=== PATIENT | male | born 1970 | race African-American/Black ===

== ENCOUNTER 2018-06-08 15:31 | Emergency (ER) | payer BC, OTHER ==
--- OUTSIDE RECORDS SUMMARY | 2018-06-08 15:33 | XMS REPORT | Clinical Summary ---
:1970 Author Organization [facility] Address [address] [place] [address] Care Team Providers Name Role Phone Denise Ortiz VEGETABLE VENDOR-C Primary Care Provider Allergies No Known Allergies Current Medications Prescription Sig. Disp. Refills Start Date End Date Status hydroCHLOROthiazide (HYDRODIURIL) 25 MG 11/14/2017 Active tablet metoprolol succinate XL (TOPROL-XL) 100 01/01/2018 Active mg 24 hr tablet COZAAR 50 mg tablet 12/30/2017 Active metoprolol succinate XL (TOPROL-XL) 100 11/17/2017 Active mg 24 hr tablet VIMOVO 500-20 mg tablet,IR & delay 3 12/20/2017 Active rel,biphasic Active Problems No known active problems Encounters Date Type Specialty Care Team Description 01/06/2018 Office Visit Orthopedic Surgery Ismael Ramos II, Posterior tibialis tendon insufficiency (Primary Dx); Tibialis posterior tendinitis, left; Class 3 obesity with body mass index (BMI) of 50.0 to 59.9 in adult, unspecified obesity type, unspecified whether serious comorbidity present after 06/07/2017 Social History Tobacco Use Types Packs/Day Years Used Date Never Smoker Smokeless Tobacco: Never Used Tobacco Cessation: Counseling Given: No Alcohol Use Drinks/Week oz/Week Comments No Sex Assigned at Date Recorded Not on file Last Filed Vital Signs Vital Sign Reading Time Taken Blood Pressure - - Pulse - - Temperature - - Respiratory Rate - - Oxygen Saturation - - Inhaled Oxygen Concentration - - Weight 184 kg (405 lb) 01/06/2018 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
--- NOTE | 2018-06-08 16:07 | ER ---
Nurse's Notes [facility] Name: Uche Cameron Jr Age: 47 yrs Sex: Male : 1970 Arrival Date: 06/08/2018 Time: 15:35 Bed 20 Private MD: None, None Diagnosis: Contact Dermatitis Presentation: 06/08 15:46 Presenting complaint: Patient states: "I think I got into some poison reddy" Patient aj1 reports rash to left arm, left zacarias and right arm. Rash is raised, itchy. Transition of care: patient was not received from another setting of care. Onset of symptoms was June 07, 2018. Risk Assessment: Do you want to hurt yourself or someone else? Patient reports no desire to harm self or others. Initial Sepsis Screen: Does the patient meet any 2 criteria? No. Patient's initial sepsis screen is negative. Does the patient have a suspected source of infection? No. Patient's initial sepsis screen is negative. Care prior to arrival: None. 15:46 Method Of Arrival: Ambulatory aj1 15:46 Acuity: JOSUÉ 4 aj1 Triage Assessment: 15:50 General: Appears in no apparent distress. comfortable, Behavior is calm, cooperative, aj1 appropriate for age. Pain: Denies pain. Neuro: Level of Consciousness is awake, alert, obeys commands. Cardiovascular: Patient's skin is warm and dry. Respiratory: Airway is patent Respiratory effort is even, unlabored, Respiratory pattern is regular, symmetrical. Derm: Rash noted that is itchy, raised, vesicular, on right arm, left arm and left zacarias. Historical: - Allergies: 15:50 No Known Allergies; aj1 - Home Meds: 15:50 Metoprolol Tartrate Oral [Active]; losartan oral oral [Active]; Hydrochlorothiazide aj1 Oral [Active]; - PMHx: 15:50 Hypertension; aj1 - PSHx: 15:50 Knee surgery; aj1 - Immunization history:: Flu vaccine is not up to date. - Social history:: Smoking status: Patient/guardian denies using tobacco. - Ebola Screening: : Patient denies travel to an Ebola-affected area in the 21 days before illness onset. Screenin:08 Abuse screen: Denies threats or abuse. Nutritional screening: No deficits noted. em Tuberculosis screening: No symptoms or risk factors identified. Fall Risk None identified. Assessment: 16:08 General: Appears in no apparent distress. comfortable, Behavior is calm, cooperative. em Pain: Denies pain. Neuro: Level of Consciousness is awake, alert, obeys commands, Oriented to person, place, time, situation. Cardiovascular: Capillary refill < 3 seconds Patient's skin is warm and dry. Respiratory: Airway is patent Respiratory effort is even, unlabored, Respiratory pattern is regular, symmetrical. Derm: Skin is intact, Rash noted that is itchy, papular, on left leg and left arm and right arm and left zacarias. Musculoskeletal: Range of motion: intact in all extremities. 16:15 Reassessment: Patient appears in no apparent distress at this time. I agree with above iw assessment by Lanre Panchal LVN. Vital Signs: 15:50 BP 151 / 82; Pulse 56; Resp 18; Temp 97.9; Pulse Ox 96% on R/A; Weight 181.44 kg (R); aj1 Height 5 ft. 11 in. (180.34 cm) (R); Pain 0/10; 15:50 Body Mass Index 55.79 (181.44 kg, 180.34 cm) [facility] ED Course: 15:35 Patient arrived in ED. mr 15:36 None, None is Private Physician. mr 15:[address] [facility] 15:50 Arm band placed on Patient placed in an exam room. [facility] 15:53 Taj Sears PA is PHCP. [facility] 15:53 Xavier Michaels MD is Attending Physician. [facility] 15:56 Lanre Panchal LVN is Primary Nurse. em 16:08 Patient has correct armband on for positive identification. Bed in low position. Call em light in reach. 16:08 No provider procedures requiring assistance completed. Patient did not have IV access em during this emergency room visit. Administered Medications: No medications were administered Outcome: 16:06 Discharge ordered by . [facility] 16:18 Discharged to home ambulatory. em 16:18 Discharge instructions given to patient, Instructed on discharge instructions, follow up and referral plans. medication usage, Demonstrated understanding of instructions, follow-up care, Prescriptions given X 2. 16:18 Condition: good em 16:19 Patient left the ED. em Signatures: Maria Eugenia Bazzi RN RN aj Taj Sears PA PA jmm Rivera, Maria mr Jacksonoz, Lanre, WIRE MACHINE CUTTER WIRE MACHINE CUTTER em Virgie Goodson RN RN iw Corrections: (The following items were deleted from the chart) 16:19 16:18 Discharge instructions given to patient, Instructed on discharge instructions, em follow up and referral plans. medication usage, Demonstrated understanding of instructions, follow-up care, Prescriptions given X 2, em 16:19 16:18 Discharged to home ambulatory, em em
--- NOTE | 2018-06-08 16:07 | EDPHYS ---
Physician Documentation [facility] Name: Uche Cameron Jr Age: 47 yrs Sex: Male : 1970 Arrival Date: 06/08/2018 Time: 15:35 Bed 20 Private MD: None, None ED Physician Xavier Michaels HPI: 06/08 16:06 This 47 yrs old Black Male presents to ER via Ambulatory with complaints of Rash. [facility] 16:06 The patient's rash thought to be caused by Dermatitis. The rash is located on the left jmm arm and left leg. Onset: The symptoms/episode began/occurred gradually, 2 day(s) ago. Associated signs and symptoms: Pertinent negatives: fever, SOB. This is a 47 year old male with a history of HTN that presents to the ED with a rash to the left arm and left leg. Patient denies fever or pain. Admits to itchiness. Denies shortness of breath. . Historical: - Allergies: 15:50 No Known Allergies; aj1 - Home Meds: 15:50 Metoprolol Tartrate Oral [Active]; losartan oral oral [Active]; Hydrochlorothiazide aj1 Oral [Active]; - PMHx: 15:50 Hypertension; aj1 - PSHx: 15:50 Knee surgery; aj1 - Immunization history:: Flu vaccine is not up to date. - Social history:: Smoking status: Patient/guardian denies using tobacco. - Ebola Screening: : Patient denies travel to an Ebola-affected area in the 21 days before illness onset. ROS: 16:06 Constitutional: Negative for fever, chills, and weight loss, Cardiovascular: Negative jm for chest pain, palpitations, and edema, Respiratory: Negative for shortness of breath, cough, wheezing, and pleuritic chest pain, Abdomen/GI: Negative for abdominal pain, nausea, vomiting, diarrhea, and constipation. 16:06 Skin: Positive for rash. 16:06 All other systems are negative. Exam: 16:06 Head/Face: atraumatic. Chest/axilla: Normal chest wall appearance and motion. jmm Cardiovascular: Regular rate and rhythm. No edema appreciated Respiratory: Normal respirations, no respiratory distress appreciated Back: Normal ROM 16:06 Constitutional: The patient appears in no acute distress, alert, awake. 16:06 Skin: erythematous rash noted to the left arm and left leg, non tender to palpation, no induration appreciated. 16:06 Neuro: Orientation: is normal, appropriate for stated age, Mentation: is normal, Memory: is normal, Gait: is steady. Vital Signs: 15:50 BP 151 / 82; Pulse 56; Resp 18; Temp 97.9; Pulse Ox 96% on R/A; Weight 181.44 kg (R); aj1 Height 5 ft. 11 in. (180.34 cm) (R); Pain 0/10; 15:50 Body Mass Index 55.79 (181.44 kg, 180.34 cm) aj1 MDM: 16:06 Patient medically screened. [facility] 16:06 Data reviewed: vital signs, nurses notes. Counseling: I had a detailed discussion with brock the patient and/or guardian regarding: the historical points, exam findings, and any diagnostic results supporting the discharge/admit diagnosis, the need for outpatient follow up, to return to the emergency department if symptoms worsen or persist or if there are any questions or concerns that arise at home. 16:06 Differential diagnosis: dermatitis, herpes zoster. ED course: Patient states symptoms [facility] occurred after pulling weeds. History and description of discomfort appears most likely consistent with contact dermatitis. . Administered Medications: No medications were administered Disposition: 06/09 10:32 Co-signature as Attending Physician, Xavier Michaels MD. Disposition: 06/08/18 16:06 Discharged to Home. Impression: Contact Dermatitis. - Condition is Stable. - Discharge Instructions: Contact Dermatitis. - Prescriptions for Hydroxyzine HCl 25 mg Oral Tablet - take 1 tablet by ORAL route every 6 hours As needed; 30 tablet. Prednisone 20 mg Oral Tablet - take 3 tablets by ORAL route once daily . Please take 3 tabs by mouth daily for 3 days, then 2 tabs by mouth daily for 3 days, then 1 tab by mouth daily for 3 days, then 1/2 tab by mouth daily for 3 days; 20 tablet. - Work release form, Medication Reconciliation Form, Thank You Letter, Antibiotic Education, Prescription Opioid Use form. - Follow up: Private Physician; When: 2 - 3 days; Reason: Continuance of care. Signatures: Maria Eugenia Bazzi RN RN aj1 Taj Sears PA PA [facility] Lanre Panchal LVN COMMUNITY RECREATION PROGRAMMER Xavier Cox MD MD gs Corrections: (The following items were deleted from the chart) 06/08 16:19 16:06 06/08/2018 16:06 Discharged to Home. Impression: Contact Dermatitis. Condition is em Stable. Forms are Medication Reconciliation Form, Thank You Letter, Antibiotic Education, Prescription Opioid Use. Follow up: Private Physician; When: 2 - 3 days; Reason: Continuance of care. brock
== END 2018-06-08 16:19 | disposition home or self-care (01) ==
LOC: ER 15:31
DX: L25.9 Unspecified contact dermatitis, unspecified cause (principal)
CPT/HCPCS: 99282

== ENCOUNTER 2019-03-22 17:03 | Emergency (ER) | payer BC ==
--- OUTSIDE RECORDS SUMMARY | 2019-03-22 17:05 | XMS REPORT | Clinical Summary ---
:1970 Author Organization [facility] Address [address] [place] [id number] Care Team Providers Name Role Phone Denise Ortiz PUBLICATIONS DESIGNER-C Primary Care Provider Allergies No Known Allergies Medications Medication Sig Dispensed Refills Start Date End Date Status hydroCHLOROthiazide (HYDRODIURIL) 25 0 11/14/2017 Active MG tablet metoprolol succinate XL (TOPROL-XL) 0 01/01/2018 Active 100 mg 24 hr tablet COZAAR 50 mg tablet 0 12/30/2017 Active metoprolol succinate XL (TOPROL-XL) 0 11/17/2017 Active 100 mg 24 hr tablet VIMOVO 500-20 mg tablet,IR & delay 3 12/20/2017 Active rel,biphasic Active Problems No known active problems Social History Tobacco Use Types Packs/Day Years Used Date Never Smoker Smokeless Tobacco: Never Used Tobacco Cessation: Counseling Given: No Alcohol Use Drinks/Week oz/Week Comments No Sex Assigned at Date Recorded Not on file Job Start Date Occupation Industry Not on file Not on file Not on file Travel History Travel Start Travel End No recent travel history available. Last Filed Vital Signs Not on file Plan of Treatment Health Maintenance Due Date Last Done Comments INFLUENZA VACCINE 07/02/2019 Results Not on fileafter 03/21/2018 Insurance Payer Benefit Plan / Group Subscriber ID Type Phone Address [employer] xxxxxxxxxxxx HMO Advance Directives Patient has advance care planning documents on file. For more information, please contact:Inocencio [id number] [place] [address]
[2019-03-22] MEDS ORDERED: TETRACAINE HCL 0.5% 4ML OPTH ONE (17:40)
[2019-03-22] MEDS ORDERED: FLUORESCEIN SODIUM 1 MG/WRAP ONE (17:40)
--- NOTE | 2019-03-22 17:54 | ER ---
Nurse's Notes [facility] Name: Uche Cameron Jr Age: 48 yrs Sex: Male : 1970 Arrival Date: 03/22/2019 Time: 17:05 Bed 27 Private MD: Diagnosis: Left Corneal Ulcer Presentation: 03/22 17:12 Presenting complaint: Patient states: left eye soreness and feels like something may be sv in there but states he wore his contacts last night to bed. Transition of care: patient was not received from another setting of care. Onset of symptoms was March 22, 2019. Care prior to arrival: None. 17:12 Method Of Arrival: Ambulatory sv 17:12 Acuity: JOSUÉ 3 sv 18:03 Risk Assessment: Do you want to hurt yourself or someone else? Patient reports no rv desire to harm self or others. Initial Sepsis Screen: Does the patient meet any 2 criteria? No. Patient's initial sepsis screen is negative. Does the patient have a suspected source of infection? No. Patient's initial sepsis screen is negative. Historical: - Allergies: 17:14 No Known Allergies; sv - PMHx: 17:14 Hypertension; sv - PSHx: 17:14 Knee surgery; sv - Immunization history:: Adult Immunizations up to date. - Social history:: Smoking status: unknown. - Ebola Screening: : Patient negative for fever greater than or equal to 101.5 degrees Fahrenheit, and additional compatible Ebola Virus Disease symptoms Patient denies exposure to infectious person Patient denies travel to an Ebola-affected area in the 21 days before illness onset. Screenin:30 Abuse screen: Denies threats or abuse. Denies injuries from another. Nutritional rv screening: No deficits noted. Tuberculosis screening: No symptoms or risk factors identified. Fall Risk None identified. Assessment: 17:29 General: Appears in no apparent distress. comfortable, Behavior is calm, cooperative. rv Pain: Complains of pain in left eye. Neuro: Level of Consciousness is awake, alert, obeys commands, Oriented to person, place, time, situation. Cardiovascular: Capillary refill < 3 seconds. Respiratory: Airway is patent. GI: No signs and/or symptoms were reported involving the gastrointestinal system. : No signs and/or symptoms were reported regarding the genitourinary system. EENT: Reports blurred vision in LEFT EYE pain in left eye. Derm: Skin is intact. Musculoskeletal: No signs and/or symptoms reported regarding the musculoskeletal system. Vital Signs: 17:14 BP 154 / 88; Pulse 86; Resp 18; Temp 97.9; Pulse Ox 97% ; Weight 172.37 kg; Height 5 sv ft. 11 in. (180.34 cm); Pain 5/10; 18:01 BP 146 / 84 LA Sitting; Pulse 81; Resp 18 S; Pulse Ox 99% on R/A; rv 17:14 Body Mass Index 53.00 (172.37 kg, 180.34 cm) sv Visual Acuity: 17:25 Left Eye Visual acuity 20/20, Pupil size 2 mm, Normal, Reactive To Accomodation; Right rv Eye Visual acuity 20/20, Pupil size 2 mm, Normal, Reactive To Accomodation; Both Eyes Visual acuity 20/20; With Lenses; ED Course: 17:05 Patient arrived in ED. mr 17:14 Triage completed. sv 17:15 Arm band placed on. sv 17:20 Taj Sears PA is PHCP. [facility] 17:20 Branden Mensah MD is Attending Physician. [facility] 17:20 Andrew Scott RN is Primary Nurse. rv 17:20 Patient has correct armband on for positive identification. Bed in low position. Call rv light in reach. Side rails up X 1. Pulse ox on. NIBP on. 17:55 Jermaine Fernandez MD is Referral Physician. [facility] 17:55 Lexa Fernandez MD is Referral Physician. [facility] 17:55 Gypsy Zamora MD is Referral Physician. [facility] 18:02 Assist provider with eye exam of left eye. using fluorescein stain, Performed by Taj CHUA Patient tolerated well. 18:03 Patient did not have IV access during this emergency room visit. rv Administered Medications: No medications were administered Outcome: 17:53 Discharge ordered by . [facility] 18:03 Discharged to home ambulatory. rv 18:03 Condition: good 18:03 Discharge instructions given to patient, family, Instructed on discharge instructions, follow up and referral plans. medication usage, Demonstrated understanding of instructions, follow-up care, medications, Prescriptions given X 1. 18:05 Patient left the ED. rv Signatures: Roxie Parker RN RN sv Taj Sears PA PA jmm Rivera, Mary mr Vicente, Ronaldo, RN RN rv Corrections: (The following items were deleted from the chart) 17:16 17:12 Acuity: JOSUÉ 4 sv sv 17:16 17:14 Pulse 86bpm; Resp 18bpm; Pulse Ox 97%; Temp 97.9F; 172.37 kg; Height 5 ft. 11 sv in.; BMI: 53.0; Pain 5/10; sv
--- NOTE | 2019-03-22 17:54 | EDPHYS ---
Physician Documentation [facility] Name: Uche Cameron Jr Age: 48 yrs Sex: Male : 1970 Arrival Date: 03/22/2019 Time: 17:05 Bed 27 Private MD: ED Physician Branden Mensah HPI: 03/22 17:20 This 48 yrs old Black Male presents to ER via Ambulatory with complaints of Eye Problem.jmm 17:20 The patient is experiencing pain. Onset: The symptoms/episode began/occurred last jm night. Duration: the symptoms are continuous. This is a 48 year old male with a history of htn that presents to the ED with complaints of pain to his left eye. Patient states he was easter egg hunting with confetti eggs yesterday. Patient developed soreness to his left eye and took his contact lens out. Patient denies change in vision. . Historical: - Allergies: 17:14 No Known Allergies; sv - PMHx: 17:14 Hypertension; sv - PSHx: 17:14 Knee surgery; sv - Immunization history:: Adult Immunizations up to date. - Social history:: Smoking status: unknown. - Ebola Screening: : Patient negative for fever greater than or equal to 101.5 degrees Fahrenheit, and additional compatible Ebola Virus Disease symptoms Patient denies exposure to infectious person Patient denies travel to an Ebola-affected area in the 21 days before illness onset. ROS: 17:20 Constitutional: Negative for fever, chills, and weight loss. jmm 17:20 Eyes: Positive for pain, Negative for vision loss, visual disturbance. 17:20 All other systems are negative. Exam: 17:20 Visual Acuity: I have reviewed the nursing documentation. jm 17:20 Constitutional: This is a well developed, well nourished patient who is awake, alert, and in no acute distress. Head/Face: atraumatic. 17:20 Neck: Trachea midline, Supple Chest/axilla: Normal chest wall appearance and motion. Cardiovascular: Regular rate and rhythm. No edema appreciated Respiratory: Normal respirations, no respiratory distress appreciated Abdomen/GI: Non distended, soft Back: Normal ROM Skin: General appearance color normal MS/ Extremity: Moves all extremities, no obvious deformities appreciated, no edema noted to the lower extremities Neuro: Awake and alert, normal gait Psych: Behavior is normal, Mood is normal, Patient is cooperative and pleasant 17:20 Eyes: Extraocular movements: intact throughout, Conjunctiva: normal, Corneas: abrasion, that is small, at 12 o'clock, a fluorescein strip employed to appreciate the findings, Anterior chamber: normal. Vital Signs: 17:14 BP 154 / 88; Pulse 86; Resp 18; Temp 97.9; Pulse Ox 97% ; Weight 172.37 kg; Height 5 sv ft. 11 in. (180.34 cm); Pain 5/10; 18:01 BP 146 / 84 LA Sitting; Pulse 81; Resp 18 S; Pulse Ox 99% on R/A; rv 17:14 Body Mass Index 53.00 (172.37 kg, 180.34 cm) sv Visual Acuity: 17:25 Left Eye Visual acuity 20/20, Pupil size 2 mm, Normal, Reactive To Accomodation; Right rv Eye Visual acuity 20/20, Pupil size 2 mm, Normal, Reactive To Accomodation; Both Eyes Visual acuity 20/20; With Lenses; MDM: 17:20 Patient medically screened. [facility] 17:50 Data reviewed: vital signs, nurses notes. Counseling: I had a detailed discussion with brock the patient and/or guardian regarding: the historical points, exam findings, and any diagnostic results supporting the discharge/admit diagnosis, the need for outpatient follow up, to return to the emergency department if symptoms worsen or persist or if there are any questions or concerns that arise at home. ED course: [facility] normal. Due to concerns for corneal ulcer patient advised to follow up with opthalmology tomorrow and given strict return precautions for changes in vision or increased pain. Patient and family understood and agrees with the plan of care. . Administered Medications: No medications were administered Disposition: 03/23 07:58 Co-signature as Attending Physician, Branden Mensah MD I agree with the assessment and [place] plan of care. Disposition: 03/22/19 17:53 Discharged to Home. Impression: Left Corneal Ulcer. - Condition is Stable. - Discharge Instructions: Corneal Ulcer. - Prescriptions for Ocuflox 0.3 % Ophthalmic Drops - instill 2 drop by OPHTHALMIC route every 6 hours for 2 days; 15 milliliter. - Medication Reconciliation Form, Thank You Letter, Antibiotic Education, Prescription Opioid Use, Work release form form. - Follow up: Private Physician; When: 2 - 3 days; Reason: Recheck today's complaints, Continuance of care, Re-evaluation by your physician. Follow up: Jermaine Fernandez MD; When: 2 - 3 days; Reason: Recheck today's complaints, Continuance of care, Re-evaluation by your physician. Follow up: Lexa Fernandez MD; When: Tomorrow; Reason: Recheck today's complaints, Continuance of care, Re-evaluation by your physician. Follow up: Gypsy Zamora MD; When: Tomorrow; Reason: Recheck today's complaints, Continuance of care, Re-evaluation by your physician. - Notes: Please do not use contacts untill cleared by opthalmology. please return to the ED if you develop increased pain, visual changes, or any other concerning symptoms. Signatures: Roxie Parker, LUCIE RN Branden Scott MD MD cha Mickail, Joel, PA PA [facility] Andrew Scott RN RN rv Corrections: (The following items were deleted from the chart) 03/22 17:55 17:53 03/22/2019 17:53 Discharged to Home. Impression: Left Corneal Ulcer. Condition is jmm Stable. Forms are Medication Reconciliation Form, Thank You Letter, Antibiotic Education, Prescription Opioid Use. Follow up: Private Physician; When: 2 - 3 days; Reason: Recheck today's complaints, Continuance of care, Re-evaluation by your physician. [facility] 18:05 17:55 03/22/2019 17:53 Discharged to Home. Impression: Left Corneal Ulcer. Condition is rv Stable. Discharge Instructions: Corneal Ulcer. Prescriptions for Ocuflox 0.3 % Ophthalmic Drops - instill 2 drop by OPHTHALMIC route every 6 hours for 2 days; 15 milliliter. and Forms are Medication Reconciliation Form, Thank You Letter, Antibiotic Education, Prescription Opioid Use. Follow up: Private Physician; When: 2 - 3 days; Reason: Recheck today's complaints, Continuance of care, Re-evaluation by your physician. Follow up: Jermaine Fernandez; When: 2 - 3 days; Reason: Recheck today's complaints, Continuance of care, Re-evaluation by your physician. Follow up: Lexa Fernandez; When: Tomorrow; Reason: Recheck today's complaints, Continuance of care, Re-evaluation by your physician. Follow up: Gypsy Zamora; When: Tomorrow; Reason: Recheck today's complaints, Continuance of care, Re-evaluation by your physician. brock
== END 2019-03-22 18:05 | disposition home or self-care (01) ==
LOC: ER 17:03
DX: H16.002 Unspecified corneal ulcer, left eye (principal); I10 Essential (primary) hypertension
CPT/HCPCS: 99283

== ENCOUNTER 2020-07-09 10:54 | Emergency (ER) | payer BC ==
--- OUTSIDE RECORDS SUMMARY | 2020-07-09 10:56 | XMS REPORT | Clinical Summary ---
:1970 Author Organization [facility] Address [address] [place] [id number] Care Team Providers Name Role Phone Denise Ortiz PERSONNEL PSYCHOLOGIST-C Primary Care Provider [phone] Allergies No Known Allergies Medications Medication Sig Dispensed Refills Start Date End Date Status hydroCHLOROthiazide (HYDRODIURIL) 25 0 Active MG tablet metoprolol succinate XL (TOPROL-XL) 0 12/04 Active 100 mg 24 hr tablet COZAAR 50 mg tablet 0 12/30/2017 Active metoprolol succinate XL (TOPROL-XL) 0 11/01 Active 100 mg 24 hr tablet VIMOVO 500-20 mg tablet,IR & delay 3 12/20 Active rel,biphasic Active Problems No known active [...] Due Date Last Done Comments INFLUENZA VACCINE 07/02/2020 Results Not on fileafter 07/09/2019 Advance Directives For more information, please contact: [phone] Type Date Recorded 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
--- NOTE | 2020-07-09 12:09 | ER ---
Nurse's Notes [facility] Name: Uche Cameron Jr Age: 49 yrs Sex: Male : 1970 Arrival Date: 07/09/2020 Time: 10:55 Bed 8 Private MD: Diagnosis: Edema, unspecified;Pain in left lower leg Presentation: 07/09 11:11 Chief complaint: Patient states: stepped through his attic last Saturday, iw laceration/abrasion down left zacarias, was seen by his PCP and started on bactrim and chlorhexidine to clean with , is still having increasing pain to leg, is worried there may be a fracture. Coronavirus screen: Client denies travel out of the [place] in the last 14 days. Ebola Screen: Patient negative for fever greater than or equal to 101.5 degrees Fahrenheit, and additional compatible Ebola Virus Disease symptoms Patient denies exposure to infectious person. Patient denies travel to an Ebola-affected area in the 21 days before illness onset. No symptoms or risks identified at this time. Initial Sepsis Screen: Does the patient meet any 2 criteria? No. Patient's initial sepsis screen is negative. Does the patient have a suspected source of infection? No. Patient's initial sepsis screen is negative. Risk Assessment: Do you want to hurt yourself or someone else? Patient reports no desire to harm self or others. Onset of symptoms was July 02, 2020. 11:11 Method Of Arrival: Ambulatory iw 11:11 Acuity: JOSUÉ 4 iw Historical: - Allergies: 11:14 No Known Allergies; iw - Home Meds: 11:14 Hydrochlorothiazide Oral [Active]; losartan Oral [Active]; Metoprolol Tartrate Oral iw [Active]; - PMHx: 11:14 Hypertension; iw - PSHx: 11:14 Knee surgery; iw - Social history:: Smoking status: . - Family history:: not pertinent. - Hospitalizations: : No recent hospitalization is reported. Screenin:24 Abuse screen: Denies threats or abuse. Denies injuries from another. Nutritional iw screening: No deficits noted. Tuberculosis screening: No symptoms or risk factors identified. Fall Risk None identified. Assessment: 11:23 General: Appears in no apparent distress. Behavior is calm, cooperative. Pain: iw Complains of pain in left zacarias. Neuro: Level of Consciousness is awake, alert, obeys commands, Oriented to person, place, time, situation, Moves all extremities. Full function. Cardiovascular: Patient's skin is warm and dry. Respiratory: Respiratory effort is even, unlabored. Derm: Musculoskeletal: Range of motion: intact in all extremities. Musculoskeletal: Swelling present in left zacarias. Injury Description: Abrasion sustained to left zacarias is scabbed. Vital Signs: 11:11 BP 177 / 110; Pulse 61; Resp 16; Pulse Ox 98% on R/A; iw ED Course: 10:55 Patient arrived in ED. ag5 11:09 Stefan Nolen MD is Attending Physician. rn 11:11 Virgie Goodson RN is Primary Nurse. iw 11:13 Triage completed. iw 11:23 Arm band placed on. iw Administered Medications: 11:30 Drug: Tetanus-Diphtheria Toxoid Adult 0.5 ml {Rat Trapper: Responsible [place]. Exp: bp 01/15/2022. Lot #: [id number]. } Route: IM; Site: right deltoid; 11:35 Follow up: Response: No adverse reaction iw Outcome: 12:09 Discharge ordered by . rn 12:27 Patient left the ED. iw Signatures: Virgie Goodson RN RN Stefan Nolen MD MD rn Peltier, Brian, RN RN bp Gaskin, Ajare ag5
--- NOTE | 2020-07-09 12:09 | EDPHYS ---
Physician Documentation [facility] Name: Uche Cameron Jr Age: 49 yrs Sex: Male : 1970 Arrival Date: 07/09/2020 Time: 10:55 Bed 8 Private MD: ED Physician Stefan Nolen HPI: 07/09 11:19 This 49 yrs old Black Male presents to ER via Ambulatory with complaints of Wound Check.rn 11:19 The patient presents with an injury, pain, swelling. The complaints affect the left rn zacarias. Onset: The symptoms/episode began/occurred 1 week(s) ago. Modifying factors: The symptoms are alleviated by nothing. the symptoms are aggravated by nothing. Severity of symptoms: At their worst the symptoms were mild, in the emergency department the symptoms are unchanged. The patient has not experienced similar symptoms in the past. The patient has been recently seen by a physician:. Reports fell through ceiling, 1 week ago, cut leg on drywall, seen by PCP, no stitches, reports given abx, leg still swollen and hurting, wants to make sure didn't break anything. Is ambulatory. Reports elevating leg and wrapping it did improve symptoms temporarily. . Historical: - Allergies: 11:14 No Known Allergies; iw - Home Meds: 11:14 Hydrochlorothiazide Oral [Active]; losartan Oral [Active]; Metoprolol Tartrate Oral iw [Active]; - PMHx: 11:14 Hypertension; iw - PSHx: 11:14 Knee surgery; iw - Social history:: Smoking status: . - Family history:: not pertinent. - Hospitalizations: : No recent hospitalization is reported. ROS: 11:19 Constitutional: Negative for fever, chills, and weight loss, Cardiovascular: Negative rn for chest pain, palpitations, and edema, Respiratory: Negative for shortness of breath, cough, wheezing, and pleuritic chest pain, MS/Extremity: + LLE injury and swelling/pain Skin: + abrasion/laceration to left leg Neuro: Negative for weakness, numbness, tingling Exam: 11:19 Constitutional: This is a well developed, well nourished patient who is awake, alert, rn and in no acute distress. Ambulatory to room without difficulty. MS/ Extremity: Pulses equal, no cyanosis. Neurovascular intact. Full, normal range of motion. LLE with increased circumference compared to right near ankle/distal to wound but equal proximally. No streaking or tenderness along venous/lymphatic system. wound C/D/I, no fluctuance or foreign body. Vital Signs: 11:11 BP 177 / 110; Pulse 61; Resp 16; Pulse Ox 98% on R/A; iw MDM: 11:09 Patient medically screened. rn 12:07 Differential diagnosis: closed fracture, contusion, dependent edema. Differential rn diagnosis: early cellulitis. Data reviewed: vital signs, nurses notes. Counseling: I had a detailed discussion with the patient and/or guardian regarding: the historical points, exam findings, and any diagnostic results supporting the discharge/admit diagnosis, radiology results, the need for outpatient follow up, to return to the emergency department if symptoms worsen or persist or if there are any questions or concerns that arise at home. Special discussion: I discussed with the patient/guardian in detail that at this point there is no indication for admission to the hospital. It is understood, however, that if the symptoms persist or worsen the patient needs to return immediately for re-evaluation. ED course: No fracture on xray, pt already on abx day 2, recommend elevation of extremity and continue with compression. Return precautions given and understood. . 07/09 11:18 Order name: XRAY Tib Fib LEFT rn 07/09 12:24 Order name: RAD EDMS Administered Medications: 11:30 Drug: Tetanus-Diphtheria Toxoid Adult 0.5 ml {Clean Up Supervisor: [place]. Exp: bp 01/15/2022. Lot #: [id number]. } Route: IM; Site: right deltoid; 11:35 Follow up: Response: No adverse reaction Disposition: 07/09/20 12:09 Discharged to Home. Impression: Edema, unspecified, Pain in left lower leg. - Condition is Stable. - Discharge Instructions: Abrasion, Contusion, Peripheral Edema. - Medication Reconciliation Form, Thank You Letter, Antibiotic Education, Prescription Opioid Use form. - Follow up: Private Physician; When: As needed; Reason: Recheck today's complaints, Re-evaluation by your physician. - Problem is new. - Symptoms are unchanged. Signatures: Dispatcher [employer] Virgie Contreras RN RN Nolen, Stefan, MD MD rn Guerita, Marbin, RN RN bp Corrections: (The following items were deleted from the chart) 12:27 12:09 07/09/2020 12:09 Discharged to Home. Impression: Edema, unspecified; Pain in left iw lower leg. Condition is Stable. Forms are Medication Reconciliation Form, Thank You Letter, Antibiotic Education, Prescription Opioid Use. Follow up: Private Physician; When: As needed; Reason: Recheck today's complaints, Re-evaluation by your physician. Problem is new. Symptoms are unchanged. rn
[2020-07-09] MEDS ORDERED: TETANUS & DIPHTHERIA TOX,ADULT 0.5 ML VIAL ONE (12:15)
--- NOTE | 2020-07-09 12:23 | RAD REPORT ---
EXAM DESCRIPTION: RAD - Tib Fib Left - 07/09/2020 11:52 am CLINICAL HISTORY: Blunt force trauma to the leg, laceration an abrasion COMPARISON: None. FINDINGS: No fracture is identified. There is no dislocation or periosteal reaction noted. Patient h as degenerative change mild in degree at the knee and ankle joints. Small plantar spur is present. Anterior contusion/ edema changes are present. There is no retained foreign body. IMPRESSION: Soft tissue injury is evident anteriorly. No acute bone finding.
[2020-07-09 12:32] VITALS: BP 177/110; O2SAT 98
== END 2020-07-09 12:27 | disposition home or self-care (01) ==
LOC: ER 10:54
DX: M79.662 Pain in left lower leg (principal); I10 Essential (primary) hypertension; Z23 Encounter for immunization
CPT/HCPCS: 90471; 90714; 99282